=== PATIENT | female | born 1975 | race Caucasian/White ===

== ENCOUNTER 2021-02-01 14:01 | Outpatient (REF) | payer BC, MEDICAID, SELFPAY ==
[2021-02-01 14:50] LABS: Influenza A PCR NEGATIVE (Negative); Influenza B PCR NEGATIVE (Negative); Resp Syncy Virus RNA Qual PCR NEGATIVE (Negative); SARS COV2 PCR INHOUSE NEGATIVE (Negative)
== END 2021-02-01 14:02 | disposition home or self-care (01) ==
LOC: HO.LNP 14:01
PROVIDERS: Visit Provider Internal Medicine
DX: R43.9 Unspecified disturbances of smell and taste (principal); Z20.822 Contact with and (suspected) exposure to COVID-19
CPT/HCPCS: 0241U

== ENCOUNTER → 2021-09-12 11:26 | Outpatient (BNVA) | payer OTHER, SELFPAY | PROVIDERS: PCP Internal Medicine; Visit Provider Internal Medicine | DX: S33.6XXA Sprain of sacroiliac joint, initial encounter (principal); W07.XXXA Fall from chair, initial encounter | CPT/HCPCS: 72190; 99203 ==

== ENCOUNTER → 2021-09-13 09:58 | Outpatient (BNVA) | payer OTHER, SELFPAY | PROVIDERS: PCP Internal Medicine; Visit Provider Internal Medicine | DX: M79.645 Pain in left finger(s) (principal); Z91.81 History of falling | CPT/HCPCS: 99213 ==

== ENCOUNTER → 2021-09-23 12:43 | Outpatient (BNVA) | payer OTHER, SELFPAY | PROVIDERS: PCP Internal Medicine; Visit Provider Internal Medicine | DX: M54.50 Low back pain, unspecified (principal); Z91.81 History of falling | CPT/HCPCS: 73110; 73130; 99214 ==

== ENCOUNTER → 2021-10-21 12:57 | Outpatient (BNVA) | payer OTHER, SELFPAY | PROVIDERS: PCP Internal Medicine; Visit Provider Internal Medicine | DX: S39.012D Strain of muscle, fascia and tendon of lower back, subsequent encounter (principal); S63.642D Sprain of metacarpophalangeal joint of left thumb, subsequent encounter; W07.XXXD Fall from chair, subsequent encounter | CPT/HCPCS: 99213 ==

== ENCOUNTER 2023-01-13 12:33 | Outpatient (AMB) | payer BC, MEDICAID, SELFPAY ==
--- NOTE | 2023-01-13 12:55 | MHC.OFFWIV ---
Intake Vital Signs 01/13/23 13:00 Height 5 ft 6 in Weight 231 lb BMI 37.3 BP 120/78 Blood Pressure Location Lt brachial Position Sitting Pulse 106 H Pulse Source Pulse Oximeter Temp 98 F Temp Source Oral Pulse Oximetry (%) 98 Oxygen Delivery Method Room Air Intake Visit Reasons: [id number] Intake Note: Patient is here today with a complaint of aches and pains and a tight throat. Now she is having asthma symptoms. Allergies No Known Allergies Allergy (Unverified 01/13/23 13:01) Do you need a note to return to daycare/school/sports/work: No HPI HPI Comments History of Present Illness Details This is a 47 year female who presents to the office today for sick visit. Patient complaining of mild shortness of breath, intermittent clean dry intermittently productive cough, and wheezing for the past several days in the setting of viral URI symptoms. Patient states she has been having myalgias/arthralgias, nasal congestion, rhinorrhea, sore throat, and headaches for the past 1 week. She started to develop mild shortness of breath, sometimes dry sometimes productive cough, and wheezing. Patient has been utilizing her albuterol inhaler more than usual. Review of Systems Const All systems reviewed & are unremarkable except as noted in HPI and below Reports no additional complaints Eyes Reports no additional complaints ENT Reports no additional complaints Card Reports no additional complaints Resp Reports no additional complaints GI Reports no additional complaints Reports no additional complaints Musc Reports no additional complaints Skin/Breast Reports system reviewed and no additional complaints, except as documented Neuro Reports no additional complaints Psych Reports no additional complaints Endo Reports no additional complaints Tyler/Lymph Reports no additional complaints Aller/Immun Reports no additional complaints Physical Exam Vital Signs: Last Vital Signs Temp 106 F H 01/13/23 13:00 Pulse 102 H 01/13/23 13:00 BP 120/78 01/13/23 13:00 Pulse Ox 98 01/13/23 13:00 Oxygen Delivery Method Room Air 01/13/23 13:00 BMI result Body Mass Index 37.3 Const Other: Vital signs reviewed. Constitutional: Non-toxic appearing. No acute distress. Well-developed and well-nourished. HEENT: Normocephalic and atraumatic. Moist mucous membranes. No pharyngeal erythema or exudates. Skin: Warm and dry. No rashes or lesions noted. Neck: Full and painless range of motion. No cervical lymphadenopathy. Cardio: Regular rate and rhythm. No murmurs, gallops, or rubs. No lower extremity edema. No JVD. Pulmonary: No respiratory distress. No accessory muscle usage. Clear to auscultation bilaterally without wheezing, crackles, or rhonchi. Gastrointestinal: Soft, nontender, and nondistended in all 4 quadrants. Normoactive bowel sounds in all 4 quadrants. Musculoskeletal: Normal range of motion in joints throughout the body. No deformity or other signs of injury. Neuro: Alert and oriented x4. Cranial nerves 2-12 grossly intact. No focal deficits appreciated. Psych: Normal mood and affect. Assessment & Plan Assessment & Plan (1) Asthmatic bronchitis with acute exacerbation: Code(s): J45.901 - Unspecified asthma with (acute) exacerbation Plan: This is a 47-year-old female with history of asthma who presents complaining of cough, shortness of breath, and wheezing in the setting of viral URI symptoms. On physical examination, there is no appreciable expiratory wheezing but patient just utilize her albuterol inhaler prior to arrival. Her history and physical most consistent with an acute asthmatic bronchitis in the setting of viral URI. Patient's vital signs are stable; I spoke with the MA, patient does not have a 106F fever (this was an error) and patient is actually afebrile. She is maintaining oxygen saturations on room air and she is overall nontoxic appearing. Patient will be sent home on p.o. prednisone 40 mg daily x5 days as well as p.o. azithromycin 500 mg today followed by 250 mg daily x4 days. She was also given a refill of her albuterol inhaler. Patient was advised to proceed directly to the emergency room if she were to develop worsening shortness of breath, worsening sputum production, or fever/chills. Patient verbalizes her understanding and she is in agreement with the plan. Medications: New prednisone 40 mg (2 x 20 mg) PO DAILY 10 tabs 0RF azithromycin For 250 mg dose pack: take 500 mg today (day 1), then 250 mg for 4 days (days 2-5) PO 6 tabs 0RF albuterol sulfate 90 mcg/actuation 1 inh inhalation QID PRN 6.7 grams 0RF shortness of breath or wheezing Coding Level of Care Code New Pt Level 3 (00857) Diagnoses Asthmatic bronchitis with acute exacerbation J45.901
[2023-01-13 13:00] VITALS: BP 120/78; PULSE 106; TEMP 36.6; O2SAT 98; BMI 37.3
== END 2023-01-13 13:45 | disposition home or self-care (01) ==
PROVIDERS: PCP Internal Medicine; Visit Provider Physician Assistant Medical
DX: J45.901 Unspecified asthma with (acute) exacerbation (principal)
CPT/HCPCS: 99203

== ENCOUNTER → 2023-02-12 13:48 | Outpatient (BNVA) | payer OTHER, SELFPAY | PROVIDERS: PCP Internal Medicine; Visit Provider Physician Assistant Medical | DX: S63.522A Sprain of radiocarpal joint of left wrist, initial encounter (principal); S63.92XA Sprain of unspecified part of left wrist and hand, initial encounter; S93.692A Other sprain of left foot, initial encounter; S39.012A Strain of muscle, fascia and tendon of lower back, initial encounter; W18.09XA Striking against other object with subsequent fall, initial encounter | CPT/HCPCS: 99203 ==

== ENCOUNTER → 2023-02-15 12:53 | Outpatient (BNVA) | payer OTHER, SELFPAY | PROVIDERS: PCP Internal Medicine; Visit Provider Physician Assistant Medical | DX: S63.522A Sprain of radiocarpal joint of left wrist, initial encounter (principal); S63.92XA Sprain of unspecified part of left wrist and hand, initial encounter; S39.012A Strain of muscle, fascia and tendon of lower back, initial encounter; W18.09XA Striking against other object with subsequent fall, initial encounter | CPT/HCPCS: 99213 ==

== ENCOUNTER → 2023-03-01 15:35 | Outpatient (BNVA) | payer OTHER, SELFPAY | PROVIDERS: PCP Internal Medicine; Visit Provider Physician Assistant Medical | DX: S63.92XA Sprain of unspecified part of left wrist and hand, initial encounter (principal); W18.09XA Striking against other object with subsequent fall, initial encounter | CPT/HCPCS: 99213 ==

== ENCOUNTER → 2023-03-21 15:40 | Outpatient (BNVA) | payer OTHER, SELFPAY | PROVIDERS: PCP Internal Medicine; Visit Provider Physician Assistant Medical | DX: S63.92XD Sprain of unspecified part of left wrist and hand, subsequent encounter (principal); W18.09XD Striking against other object with subsequent fall, subsequent encounter | CPT/HCPCS: 99213 ==

== ENCOUNTER 2023-04-03 18:07 | Outpatient (REF) | payer OTHER, SELFPAY | END 2023-04-03 18:08 | disposition home or self-care (01) | LOC: HO.MRI 18:07 | PROVIDERS: Visit Provider Internal Medicine | DX: M79.642 Pain in left hand (principal) | CPT/HCPCS: 73218 ==

== ENCOUNTER 2023-04-06 08:00 | Outpatient (RCR) | payer OTHER, BC, MEDICAID, SELFPAY ==
--- NOTE | 2023-03-06 13:21 | MHC.OT.EP ---
[address] [phone] Occupational Therapy Plan of Care Patient Name: Azul Riley Date of Evaluation: 03/06/23 Diagnosis: Left hand thumb sprain Pain Location: 3-8 Base of left thumb , radial wrist Ache Pain Score: 6 Pain Scale Used: Numeric (0 - 10) Aggravating Factors: Hand use with FA TS on and off Alleviating Factors: TS . Cold, ibuprofen Assessment: Pt is a 47 yo female 3 wks s/p left thumb sprain due to a fall on her left hand at work . Pt reports a good improvement in pain since wearing a forearm based radial gutter thumb spica from the [employer] Today she presents with left thumb /radial wrist pain worsening with left hand use. She has been able to return to work with the thumb spica for protection and a few activity modifications She has difficulty with many bimanual tasks ie opening a tight jar, tying shoes, bathing and homemaking due to left hand pain. 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 Pt will benefit from OT to promote healing , dec pain and increase left hand function Frequency and Duration: The patient will be seen 2 x wk x 4 wks Short Term Goals: Indep with HEP Wean from thumb spics for light ADL and light homemaking Tolerate isometric wrist and hand strengthening Rubber Process Hand Goals: Pain free left hand use with moderate resist daily activities Mild difficulty with heavy work tasks with activity modifications as needed Indep with LUE strengthening Quick DASH score to < 25 pts Treatment Plan: Therapeutic Exercise Therapeutic Activity Home Exercise Program Splinting Patient Education ADL Training Ultrasound Iontophoresis Fluidotherapy Kinesiotaping Electronically Signed By: Aissatou Benedict OT CHT CLT Please Sign and return to therapist. Thank you once again for your referral.
== END 2023-04-06 10:26 | disposition home or self-care (01) ==
LOC: HO.OT 08:00
PROVIDERS: PCP Internal Medicine; Visit Provider Physician Assistant Medical
DX: S63.602D Unspecified sprain of left thumb, subsequent encounter (principal)
CPT/HCPCS: 97033; 97035; 97110; 97140; 97165

== ENCOUNTER → 2023-04-12 15:44 | Outpatient (BNVA) | payer OTHER, SELFPAY | PROVIDERS: Visit Provider Physician Assistant Medical | DX: S63.522D Sprain of radiocarpal joint of left wrist, subsequent encounter (principal); W18.09XD Striking against other object with subsequent fall, subsequent encounter | CPT/HCPCS: 99213 ==